=== PATIENT | female | born 1955 | race Caucasian/White ===

== ENCOUNTER 2016-10-24 12:14 | Day surgery (SDC) | payer OTHER ==
[~2016-10-24] VITALS: Ht 152.4 cm; Wt 52.0 kg
[~2016-10-24 12:14] MED LIST: ASPI81TA53 PO; LOVA20TA PO; Sodium Chloride LOK Flush 10 mL Syringe IV PRN; fentaNYL-PF 50 mCg/mL 2 mL Inj IVPUSH PRN
[2016-10-24] MEDS ORDERED: NPR500T PO (12:46)
[2016-10-24 12:47] VITALS: BP 148/94; PULSE 96; RESP 16; O2SAT 97
[2016-10-24] MEDS: 0.9% Sodium Chloride 1,000 ML ONE ×3 (13:39→13:52)
--- NOTE | 2016-10-24 14:02 | PCM.ENDCOL ---
Colonoscopy Date of Service: Oct 24, 2016 Physician Kulwant Barton MD Pre Procedure Diagnosis: Screening. Brother with polyp requiring surgical removal. Post Procedure Dx & Findings: Hemorrhoids and possible lipoma Procedure Colonoscopy Prep adequate Withdrawal 14 minutes PROCEDURE IN DETAIL: After unremarkable rectal examination Olympus video colonoscope was inserted into patient's anal canal and advanced the cecum. Russo were identified including the ileocecal valve and appendiceal orifice. Scope was withdrawn systematically. The mucosa of the cecum, ascending, transverse, descending, sigmoid, rectal mucosa lined with whitish, pink, smooth, glistening, normal-appearing mucosa, normal fine branching, underlying vascularity, normal haustra. The patient tolerated procedure and was transported to observation area. In the ascending colon, there was a 1 cm flat patch of yellowish mucosa. Surface looked normal. Biopsies obtained using cold forceps. Because it was flat, pillow sign was not doable. In the rectum retroflexion was done which showed hemorrhoids anal canal was inspected carefully the way out and mild hemorrhoids noted. Impression Brother with polyp requiring surgical removal Hemorrhoids Possible lipoma status post biopsy Recommendation Repeat colonoscopy 5 years Presedation Assessment Risks and Benefits Informed consent was obtained from the patient after all risks and benefits including but not limited to drug reaction, infection, pain, bleeding, perforation, as well as alternatives were discussed. Patient monitoring Continuous pulse oximetry, cardiac monitoring, blood pressure monitoring, IV access, and oxygen at 2L per nasal cannula. Periprocedural Fentanyl: Fentanyl 100mcg Incrementally Midazolam: Midazolam 5mg Incrementally Complications There were no periprocedural complications identified. Post Procedure Plan Post Procedure Recommendations 1. Restrict activities today. 2. Resume normal activities in the morning. 3. Resume medications. 4. Patient informed of normal post procedure side effects as bloating, drowsiness, blood streaking in the stool. 5. average risk CRCS. If colon polyps come back as: -Hyperplastic- can repeat colonoscopy in 10 years -Tubular adenoma- repeat colonoscopy in 5 years -Tubulovillous/villous adenoma- repeat colonoscopy in 3 years -If any dysplasia- return to clinic as soon as possible 6. Please don't hesitate to call me with any questions. Kulwant Barton MD Oct 24, 2016 14:02
[2016-10-24 14:04] VITALS: BP 131/80; PULSE 53; RESP 12; O2SAT 94
[2016-10-24 14:15] VITALS: BP 131/80; PULSE 52; RESP 12; O2SAT 94
[2016-10-24 14:17] VITALS: BP 124/82; PULSE 65; RESP 14; O2SAT 97
--- NOTE | 2016-10-28 10:10 | PATH ---
SURGICAL PATHOLOGY Attending Physician:Kulwant Barton M.D. CASE STATUS: Signed Out PATIENT NAME: LORENZA WALLACE PID: [id number] : 1955 DATE COLLECTED:10/24/2016 00:00 SPECIMEN: Colon, Biopsy CLINICAL HISTORY: ASCENDING COLON LIPOMA FINAL DIAGNOSIS: 1.SPECIMEN DESIGNATED ASCENDING COLON LIPOMA: FRAGMENT OF NORMAL-APPEARING COLON MUCOSA WITH SINGLE PROMINENT LYMPHOID AGGREGATE. NO SUBMUCOSAL TISSUE PRESENT ON MULTIPLE HISTOLOGIC SECTIONS, AND THEREFORE NO EVIDENCE OF POSSIBLE LIPOMA. ICD10 CODE K63.5 GROSS DESCRIPTION: The specimen is received in one formalin filled container labeled with the patient's name, sublabeled "ascending colon lipoma" and consists of a 0.1 x 0.1 x 0.1 CM portion of tissue which is entirely submitted in one cassette. 10/25/2016 DAC MICRO DESCRIPTION: See diagnosis. ICD-9 CODES: CPT CODES: 1: 13176 Electronically Signed Out Luis Guerrero MD [facility] [address], [place] [address] Technical component performed at [facility], [facility] [address], [place], [address]
== END 2016-10-24 23:59 | disposition home or self-care (01) ==
LOC: END 12:14
PROVIDERS: ATTEND Internal Medicine
DX: Z12.11 Encounter for screening for malignant neoplasm of colon (principal); Z83.71 Family history of colonic polyps; K63.9 Disease of intestine, unspecified; K64.9 Unspecified hemorrhoids
CPT/HCPCS: 45380; 99153; G0500; J2250; J3010; J7030